=== PATIENT | female | born 1995 | race Two or more races ===

== ENCOUNTER 2017-07-05 18:07 | Emergency (ER) | payer OTHER ==
[~2017-07-05] VITALS: Ht 149.9 cm; Wt 63.5 kg
[~2017-07-05 18:07] MED LIST: CLEOCIN HCL300 MG PO
== END 2017-07-05 20:27 | disposition home or self-care (01) ==
LOC: ER 18:07
DX: S13.4XXA Sprain of ligaments of cervical spine, initial encounter (principal); S46.911A Strain of unspecified muscle, fascia and tendon at shoulder and upper arm level, right arm, initial encounter; M62.830 Muscle spasm of back; V49.9XXA Car occupant (driver) (passenger) injured in unspecified traffic accident, initial encounter; Y93.89 Activity, other specified; Y92.488 Other paved roadways as the place of occurrence of the external cause; Y99.8 Other external cause status

== ENCOUNTER 2018-06-14 18:20 | Outpatient (CLI) | payer OTHER | END 2018-06-14 19:30 | disposition home or self-care (01) | LOC: RAD 18:20 | DX: M79.641 Pain in right hand (principal) ==

== ENCOUNTER → 2021-03-08 | Emergency (ER) | payer OTHER ==
[~2021-03-08] VITALS: Ht 149.9 cm; Wt 48.5 kg
== END | disposition home or self-care (01) ==
LOC: ER 21:39
DX: M94.0 Chondrocostal junction syndrome [Tietze] (principal); R00.2 Palpitations; F06.4 Anxiety disorder due to known physiological condition